=== PATIENT | female | born 1940 | race Caucasian/White ===

== ENCOUNTER 2017-10-15 19:23 | Emergency (ER) | payer MEDICARE ==
--- NOTE | 2017-10-15 20:36 | RAD ---
RADIOGRAPH CHEST 2 VIEWS: Date: 10/15/17 Time: 8:15 p.m. HISTORY: 77-year-old female with cough and congestion for one week. COMPARISON: One view study of 04/07/15. FINDINGS: On the frontal view, there is a new finding of a small, patchy pulmonary opacity approximately 2 x 2. 5 cm at the lateral aspect of the right mid lung zone, with its inferior aspect broadly abutting the right minor fissure. This was not present on the 2015 study. The rest of the lungs are essentially clear. No pleural effusion or cardiomegaly. No pneumothorax. IMPRESSION: 1. Small focal mass-like density at the lateral aspect of the right upper lobe. Possibilities in clude primary pulmonary neoplasm, early acute pneumonia, and scar. 2. Recommend serial followup chest radiographs, beginning in one week. If this does not resolve, then CT of the chest would be recommended. [facility] [] POS: [facility]
[2017-10-15] MEDS ORDERED: Doxycycline 100 MG CAP PO SCH (21:45)
== END 2017-10-15 21:51 | disposition home or self-care (01) ==
LOC: ERS 19:23
DX: J18.9 Pneumonia, unspecified organism (principal); E11.9 Type 2 diabetes mellitus without complications; I10 Essential (primary) hypertension; F32.9 Major depressive disorder, single episode, unspecified
CPT/HCPCS: 71046

== ENCOUNTER 2018-06-17 13:34 | Outpatient (CLI) | payer MEDICARE ==
--- NOTE | 2018-06-17 15:25 | RAD ---
TWO VIEWS CHEST: Date: 06-17-18 Provided Clinical History: Dyspnea. FINDINGS: Comparison 10-24-17. Cardiac and mediastinal silhouette is unchanged in appearance. Vascular calcification is noted involv ing the aortic arch. Lungs are now free of significant opacity. No pleural fluid or pneumothorax appa rent. IMPRESSION: No evidence for acute cardiopulmonary process. POS: [facility]
== END 2018-06-17 13:35 | disposition home or self-care (01) ==
LOC: RAD 13:34
PROVIDERS: ATTEND Internal Medicine Critical Care Medicine
DX: R06.00 Dyspnea, unspecified (principal)
CPT/HCPCS: 71046